=== PATIENT | female | born 1960 | race American Indian/Alaskan Native ===

== ENCOUNTER 2017-07-26 10:39 | Emergency (ER) | payer SELFPAY ==
[2017-07-26] MEDS ORDERED: TORADOL IM ONE (12:19)
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
--- NOTE | 2017-07-26 13:26 | Cat Scan Report ---
CT CERVICAL SPINE WITHOUT CONTRAST:07/26/17 10:39:00 CLINICAL: Neck pain. TECHNIQUE: Volumetric acquisition and 1.25-mm scan reconstructions without contrast. Sagittal and coronal reformats were performed. FINDINGS: Normal vertebral body height, alignment and disk spaces. No fracture or subluxation. Normal soft tissues and airway. No disc protrusions or bulges. IMPRESSION: Normal study.
[2017-07-26 13:54] VITALS: BP 187/82
== END 2017-07-26 14:06 | disposition home or self-care (01) ==
LOC: ED 10:39
DX: M54.12 Radiculopathy, cervical region (principal); I10 Essential (primary) hypertension; F32.2 Major depressive disorder, single episode, severe without psychotic features; Z90.710 Acquired absence of both cervix and uterus
CPT/HCPCS: 72125; 96372; 99283; J1885